=== PATIENT | male | born 1965 | race Caucasian/White ===

== ENCOUNTER 2017-03-26 11:10 | Emergency (ER) | payer MEDICAID, OTHER ==
[~2017-03-26] VITALS: Ht 182.9 cm; Wt 111.7 kg
[~2017-03-26 11:10] MED LIST: LORT5TAB PO
[2017-03-26 11:20] VITALS: BP 177/88; PULSE 83; RESP 16; TEMP 98.9; O2SAT 100
--- NOTE | 2017-03-26 11:42 | PD ---
HPI Chief Complaint: Injury Time Seen by Provider: 11:26 Travel History International Travel<30 days: No Contact w/Intl Traveler<30days: No Traveled to known affect area: No History of Present Illness HPI 51-year-old male presents to the emergency room for evaluation of left shoulder pain after injuring it at work earlier today. Patient tripped between 2 studs and fell backwards grabbing a stud to catch himself and keep himself from falling. States he heard and felt a mild, painful pop to the left proximal humerus. Since then he has had pain with any range of motion of the left shoulder. Pain is not significant when arm is at rest. Patient has not taken anything for symptoms. He came straight to the emergency room. Denies paresthesias. No chronic medical conditions or daily medications. PFSH Past Medical History Medical History: Denies Significant Hx Arthritis: No Asthma: No Heart Rhythm Problems: No Cardiovascular Problems: No Chest Pain: No Congestive Heart Failure: No COPD: No Cerebrovascular Accident: No GERD: No Genitourinary: No Headaches: No Hepatitis: No Hiatal Hernia: No Hypertension: No Kidney Stones: No Musculoskeletal: Yes (Bursitis BL shoulders ) Neurologic: No Reproductive: No Respiratory: No Migraines: No Myocardial Infarction: No Renal Failure: No Seizures: No Sleep Apnea: No Ulcer: No Tetanus Vaccination: > 5 Years Influenza Vaccination: No Past Surgical History Abdominal Surgery: No Appendectomy: Yes (03/12/08) Cardiac Surgery: No Cholecystectomy: No Ear Surgery: No Endocrine Surgery: No Eye Surgery: No Oral Surgery: No Thoracic Surgery: No Social History Alcohol Use: Yes (Occ.) Tobacco Use: No Substance Use: No Allergies-Medications (Allergen,Severity, Reaction): Coded Allergies: No Known Allergies (Verified , 03/26/17) Reported Meds & Prescriptions Reported Meds & Active Scripts Active No Active Prescriptions or Reported Medications Review of Systems Except as stated in HPI: all other systems reviewed are Neg Physical Exam Narrative GENERAL: Well-nourished, well-developed male in no acute distress. Afebrile. Ambulatory. SKIN: Focused skin assessment warm/dry. Mild ecchymosis to the left proximal humerus. HEAD: Normocephalic. EYES: No scleral icterus. No injection or drainage. NECK: Supple, trachea midline. No JVD or lymphadenopathy. CARDIOVASCULAR: Regular rate and rhythm without murmurs, gallops, or rubs. RESPIRATORY: Breath sounds equal bilaterally. No accessory muscle use. MUSCULOSKELETAL: No cyanosis. No obvious edema. 2+ radial pulse. Radial, ulnar, and median nerves intact. Full range of motion of shoulder but with pain. Left biceps tendon appears larger than right. Data Data Last Documented VS Vital Signs Date Time Temp Pulse Resp B/P (MAP) Pulse Ox O2 Delivery O2 Flow Rate FiO2 03/26/17 11:20 98.9 83 16 177/88 (117) 100 Orders Orders Shoulder, Complete (>2vws) (03/26/17 ) Support Splint (03/26/17 11:37) MDM Medical Decision Making Medical Screen Exam Complete: Yes Emergency Medical Condition: Yes Medical Record Reviewed: Yes Differential Diagnosis Biceps tendon rupture, shoulder strain, spasm, fracture, dislocation Narrative Course 51-year-old otherwise healthy male presents to the emergency room for evaluation of left proximal shoulder pain and swelling after injuring it at work earlier today. Patient tripped and fell, catching himself on a stud with his left arm. He heard a pop and had immediate pain. Left upper extremity is neurovascularly intact with 2+ radial pulse. Radial, ulnar, and median nerves intact. Limited range of motion secondary to pain. Tenderness to palpation of the proximal humerus. There appears to be a slight Justin deformity. X-ray obtained to evaluate for dislocation or avulsion fracture. X-ray is negative. This is likely biceps tendon rupture. Patient declined pain medication in the emergency room. Patient was placed in sling and told to follow-up with the Worker's Compensation physician for outpatient MRI if symptoms persist. Patient states he would like to be treated conservatively and avoid surgery if possible. He will make the final decision after follow-up. Told to return for worsening symptoms. He understands and agrees to plan. Diagnosis Primary Impression: Probable Proximal Biceps Tendon Rupture Referrals: Primary Care Physician Additional Instructions: Rest and drink plenty of fluids. Use sling for the next several days Take ibuprofen with food as directed, as needed for pain. Apply ice to the affected area for 20 minutes at a time, as needed for pain and swelling. Follow-up with Worker's Compensation physician for outpatient MRI. Return to the emergency room for worsening symptoms. Med/Other Pt SpecificInfo: Prescription(s) given Scripts No Active Prescriptions or Reported Meds Disposition: 01 DISCHARGE HOME Condition: Stable Joyce Gaston Mar 26, 2017 11:42
--- NOTE | 2017-03-26 12:18 | RADRPT ---
EXAM DATE/TIME: 03/26/2017 11:59 [facility] COMPARISON: No previous studies available for comparison. INDICATIONS : Left shoulder pain after attempting to break a fall today. Patient states he heard a pop & has no ran ge of motion. MEDICAL HISTORY : Bursitis bilateral shoulders. SURGICAL HISTORY : Appendectomy. Bilateral carpal tunnel release. ENCOUNTER: Initial ACUITY: 1 day PAIN SCORE: 10/10 LOCATION: Left shoulder FINDINGS: Multiple view examination of the left shoulder demonstrates no evidence of fracture or dislocation. The glenohumeral and acromioclavicular joints are maintained. There is normal range of motion betwee n internal and external rotation. Bony mineralization is normal. CONCLUSION: No acute fracture. Umesh Escobar MD on March 26, 2017 at 12:16 Board Certified Radiologist. This report was verified electronically.
== END 2017-03-26 12:34 | disposition home or self-care (01) ==
LOC: PHEFT 11:10
DX: M25.512 Pain in left shoulder (principal); W01.0XXA Fall on same level from slipping, tripping and stumbling without subsequent striking against object, initial encounter
CPT/HCPCS: 73030; 99283